=== PATIENT | female | born 1995 | race Hispanic/Latino ===

== ENCOUNTER 2017-05-31 21:30 | Emergency (ER) | payer BC ==
[2017-05-31 21:43] VITALS: BP 101/67; PULSE 96; RESP 18; TEMP 98; O2SAT 98
--- NOTE | 2017-05-31 22:08 | ED PDOC ---
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 STATES PAIN IN KNEE PREVENTED WALKING. AMBULANCE BROUGHT PATIENT TO ED.) Past Medical History Reviewed: Historical Data, Nursing Documentation, Vital Signs Vital Signs: Last Vital Signs Temp 98 F 05/31/17 21:40 Pulse 96 H 05/31/17 21:40 Resp 18 05/31/17 21:40 BP 101/67 05/31/17 21:40 Pulse Ox 98 05/31/17 21:40 - Family History Family History: States: No Known Family Hx - Home Medications Home Medications: Ambulatory Orders Medication Instructions Recorded Bacitracin Ointment [Bacitracin] 0.5 gm TOP BID #1 tube 05/31/17 Ibuprofen [Motrin] 600 mg PO Q8 PRN #15 tab 05/31/17 - Allergies Allergies/Adverse Reactions: Allergies Allergy/AdvReac Type Severity Reaction Status Date / Time No Known Allergies Allergy Verified 05/31/17 21:40 Review of Systems ROS Statement: Except As Marked, All Systems Reviewed And Found Negative Physical Exam - Reviewed Nursing Documentation Reviewed: Yes Vital Signs Reviewed: Yes - Physical Exam Appears: Positive for: Well, Non-toxic, No Acute Distress Head Exam: Positive for: ATRAUMATIC, NORMAL INSPECTION, NORMOCEPHALIC Skin: Positive for: Normal Color, Warm, DRY Eye Exam: Positive for: EOMI, Normal appearance, PERRL ENT: Positive for: Normal ENT Inspection Neck: Positive for: Normal, Painless ROM Cardiovascular/Chest: Positive for: Regular Rate, Rhythm Respiratory: Positive for: CNT, Normal Breath Sounds Gastrointestinal/Abdominal: Positive for: Normal Exam, Bowel Sounds, Soft Back: Positive for: Normal Inspection, Other (NO BONY TENDERNESS. MILD TENDERNESS PARALUMBAR REGION. NO ECCHYMOSIS/SWELLING NOTED.) Extremity: Positive for: Normal ROM, Other (NO EFFUSION NOTED. TENDERNESS NOTED LATERAL KNEE. ABRASION NOTED MEDIAL ASPECT OF LEFT LEG.) Neurologic/Psych: Positive for: Alert, Oriented - ECG O2 Sat by Pulse Oximetry: 98 - Progress ED Course And Treament: D/W MOTHER PLAN OF ACTION AND CARE SHE IS HEALTHCARE PROXY FOR MOTHER TYLENOL 650MG XRY KNEE: NO FX NOTED D/W MOTHER. DOES NOT WANT CRUTCHES/KNEE IMMOBILIZER. TETANUS UP TO DATE. BACITRACIN APPLIED TO WOUND. Disposition - Clinical Impression Clinical Impression: Knee contusion, Abrasion - Patient ED Disposition Is Patient to be Admitted: No - Disposition Disposition: Routine/Home Disposition Time: 22:46 Condition: FAIR Prescriptions: Bacitracin Ointment [Bacitracin] 0.5 gm TOP BID #1 tube Ibuprofen [Motrin] 600 mg PO Q8 PRN #15 tab PRN Reason: Pain, Moderate (4-7) Instructions: Knee Pain (ED), Abrasion (ED) Forms: [employer] (Bulgarian)
--- NOTE | 2017-06-01 11:48 | RAD ---
PROCEDURE: Left Knee Radiographs. They HISTORY: Pain. COMPARISON: None. FINDINGS: BONES: Normal. No fracture. JOINTS: Normal. No osteoarthritis. JOINT EFFUSION: None. OTHER FINDINGS: None. IMPRESSION: Normal radiographs of the left knee.
== END 2017-05-31 23:15 | disposition home or self-care (01) ==
LOC: H.ER 21:30
DX: S80.02XA Contusion of left knee, initial encounter (principal); W19.XXXA Unspecified fall, initial encounter; Y92.89 Other specified places as the place of occurrence of the external cause